=== PATIENT | female | born 1980 | race Caucasian/White ===

== ENCOUNTER 2024-12-14 03:39 | Emergency (ER) | payer SELFPAY ==
[2024-12-14 03:48] VITALS: BP 160/98; BMI 25.8
--- NOTE | 2024-12-14 03:57 | ED.GENMED ---
History of Present Illness
General
Chief Complaint: Overdose Unintentional
Source: patient and ambulance crew
Exam Limitations: none
Time Seen by Provider: 12/14/24 03:43
Nursing documentation reviewed up to this point in time: agreed with
History of Present Illness
History of Present Illness:
44-year-old female presents to the emergency room via EMS for evaluation of slurred speech after taking Ambien. Patient says that she took her normal Ambien as well as her normal dose of Subutex tonight. She said that she was outside (she claims
that she was getting something that was outside of her house; EMS reported that patient is homeless) and the police pulled up and apparently they felt that her speech was slurred; apparently when she disclosed that she took her normal medications as
above they felt that she needed to come to the hospital to be evaluated. EMS was called for transport. Patient says that she feels fine 'and now my Ambien is wearing off.' She says she wants to go home. She has no acute complaints. She denies
any suicidality or homicidal ideation. Denies any depression. EMS report was that patient is homeless but patient denies this�she says that she has a place to stay in [place] and family in the area.
Review of Systems
Review of Systems
All Other Systems: ROS reviewed and negative except as documented in HPI and ROS
Respiratory: Denies trouble breathing
Cardiac: Denies chest pain
ABD/GI: Denies abdominal pain
: Denies flank pain
Musculoskeletal: Denies neck pain or back pain
Neurological: Denies dizzy or headache
Phy Exam
Physical Exam
Physical Exam:
General: Awake, alert, oriented x3; no acute distress
Head: Normocephalic, atraumatic
Eyes: Conjunctiva normal, EOMI, pupils equal round and reactive to light bilaterally
Throat: Airway intact, handling secretions
Neck: Trachea midline, supple without meningismus
Lungs: Clear to auscultation bilaterally, no wheezing, rales, rhonchi
Heart: Regular rate and rhythm, no murmurs, gallops, or rubs
Abd: Soft, non distended, nontender
Neuro: Cranial nerves grossly intact, speech fluid without dysarthria or aphasia, motor and sensory intact in all extremities
Extremities: No edema in extremities, equal pulses in all extremities
Scores
Heart Failure Risk
Heart Failure Risk Score: Not Applicable
Heart Score for Chest Pain Patients
STEMI patient?: Not applicable
Withdrawal Assessment of Alcohol
Withdrawal Assessment Completed?: Not applicable
Course
Orders/Labs/Results
Orders:
Orders
12/14/24 03:56
Bedside Glucose- Treatment ONCE
MDM/Problems Addressed
Differential Diagnosis Includes:
Polypharmacy
MDM/Problems Addressed:
44-year-old female presents for medical screening exam after taking her normal dose of Subutex alongside her normal dose of Ambien before bed. She reports that she went outside to get something and encountered police who felt her speech was slurred
and when told that she took those medications felt she needed medical evaluation. She says that she feels fine. She is awake and alert without any slurred speech here. She has no acute complaints and she wants to be discharged. Discharged in
keeping with her wishes.
*Pulse Oximetry
Patient hypoxic: no
*Critical Care Note
Total Time (30-74mins, 75-104mins- exclusive of procedures): Not Applicable
Data Reviewed
Source: patient and ambulance crew
ED Attending Note
-
Portions of this chart may have been created with voice recognition software.� Occasional wrong word or��sound alike� substitutions may have occurred due to the inherent limitations of voice recognition software.
Discharge Plan
Departure
Discharge Problem:
Encounter for medical screening examination
Prescriptions:
No Action
Asacol 400 mg Tablet,Delayed Release (Dr/Ec)
400 mg PO TID
clonidine HCl 0.2 mg Tablet
0.2 mg PO DAILY
zolpidem [Ambien] 5 mg Tablet
5 mg PO HS
alprazolam [Xanax] 2 mg Tablet
2 mg PO TID PRN (Reason: anxiety)
buprenorphine-naloxone [Suboxone] 8-2 mg Tablet, Sublingual
1 tab SUBLINGUAL DAILY
Activity Restrictions/Additional Instructions:
Thank you for visiting the Emergency Department at [facility].
1. Please schedule a follow up appointment as directed. Call first thing tomorrow morning to make an appointment.
2. If indicated, please take your medications as instructed and indicated on discharge paperwork.
3. If any of your symptoms do not improve, or persist, or become more severe within 6-12 hours, please return to the emergency department for further care.
4. Please return to the emergency department if you develop a headache, neck pain/stiffness, fever greater than 100.4F, chest pain, shortness of breath, persistent nausea, vomiting, slurred speech, difficulty walking, numbness/tingling, weakness,
signs of infection or any other symptoms that are worrisome to you.
Please call [phone] if you have any questions.
Discharge Date and Time
Print Language: BENGALI
[2024-12-14 04:16] LABS: Glucose - Point of Care 103 mg/dl (70-99)
--- NOTE | 2024-12-14 09:20 | CM ---
ED CM alerted from railroad dispatcher post dc that pt in lobby and needs help with transport
Pt discharged from ED earlier this morning with [employer] tokens
Per pt, she noted she is lost and not unable to figure out the transport schedule
She also requested CM arrange for BLS home- CM advised pt without medical necessity
Pt [place] two weeks prior and staying with aunt and sister locally
They do not drive or have capability to arrange for Uber for her
Pt noted she has no money
[employer] [facility] provided to pt along with [employer] bus schedule for transport home to [facility]
--- NOTE | 2024-12-15 14:16 | CM ---
Addendum entered by Becki Thompson 12/15/24 16:46:
Meeting with pt in lobby
Call with mother Fanny [phone]
Mother bought bus ticket from [facility] [address] to [facility]
CM provided Lyft to [place] [address] with train fare money and money for meal
Pt will walk from [facility] [address] a few blocks to bus pickup
Original Note:
ED CM received call from front lobby from pt
She noted she went back to her sister's house in [place] yesterday with the bus fare provided to her by CM
She did not like being at her sister's home and came to the hospital lobby as she said the home environment is not safe
Requesting CM provide bus ticket to [facility] for her to go to mother's house in [facility]
CM provide pt with homeless hotline number for intake and services
== END 2024-12-14 04:50 | disposition home or self-care (01) ==
LOC: EMR 03:39
PROVIDERS: EMERGENCY PHYSICIAN Emergency Medicine
DX: Z00.00 Encounter for general adult medical examination without abnormal findings (principal); R47.81 Slurred speech; Z59.00 Homelessness unspecified
CPT/HCPCS: 99282; 82962